=== PATIENT | male | born 1970 | race Caucasian/White ===

== ENCOUNTER 2023-02-11 03:54 | Emergency (ER) | payer OTHER ==
[~2023-02-11 03:54] MED LIST: HYDROCODONE BIT1 T11 PO; KEFLEX500 MG PO; MOTRIN800 MG PO; NKHM; PREDNISONE10 MG PO
[2023-02-11 05:43] LABS: BILIRUBIN Negative (Negative); BLOOD 3+ (Negative); CLARITY Clear (Clear); COLOR Yellow (Yellow); GLUCOSE Negative (Negative); KETONE Negative (Negative); LEUKO ESTERASE Negative (Negative); NITRITE Negative (Negative); PH 5.5 (4.5-8.0)
[2023-02-11] MEDS ORDERED: ONDANSETRON4 MG SL (06:19)
[2023-02-11] MEDS ORDERED: FLOMAX0.4 MG PO (06:19)
[2023-02-11] MEDS ORDERED: HYDROCODONE-AC1 EAC1 PO (06:19)
[2023-02-11 06:21] LABS: RBC TNTC rbc/hpf (0-2)
[2023-02-11 06:23] LABS: YEAST 1+
[2023-02-11 06:24] LABS: BACTERIA 2+
== END 2023-02-11 06:27 | disposition home or self-care (01) ==
LOC: ED 03:54
PROVIDERS: Internal Medicine
DX: N13.2 Hydronephrosis with renal and ureteral calculous obstruction (principal); I25.2 Old myocardial infarction; Z90.49 Acquired absence of other specified parts of digestive tract